=== PATIENT | male | born 1985 | race Caucasian/White ===

== ENCOUNTER 2016-11-14 03:49 | Emergency (ER) | payer OTHER ==
[2016-11-14 03:58] VITALS: BP 160/112; PULSE 109; RESP 16; TEMP 98.1; O2SAT 94
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
== END 2016-11-14 04:08 | disposition home or self-care (01) ==
DX: S69.92XA Unspecified injury of left wrist, hand and finger(s), initial encounter (principal); V48.5XXA Car driver injured in noncollision transport accident in traffic accident, initial encounter; Y92.410 Unspecified street and highway as the place of occurrence of the external cause; Y99.8 Other external cause status; Y93.89 Activity, other specified

== ENCOUNTER 2018-09-02 01:34 | Emergency (ER) | payer BC, OTHER ==
--- NOTE | 2018-09-02 01:37 | EDPHY ---
H & P Time Seen by Provider: 09/02/18 01:37 HPI/ROS: HPI CHIEF COMPLAINT: Right posterior molar dental pain. HISTORY OF PRESENT ILLNESS: 33-year-old male, otherwise healthy no significant medical history presents emergency room the right posterior molar dental pain. This been bothering him all week. He was recently new your consult dentist. He is prescribed clindamycin. He is due to see a dentist tomorrow. He has been taking his clindamycin every 8 hr as prescribed. Took ibuprofen for pain control however continues to have worsening pain. No fever. No trouble swallowing. Decided come the emergency room for evaluation. Past Medical History: Denies medical history Past Surgical History: Denies surgical history Social History: Denies drugs alcohol tobacco. Family History: Noncontributory ROS REVIEW OF SYSTEMS: 10 Systems were reviewed and negative with the exception of the elements mentioned in the history of present illness. Exam Constitutional triage nursing summary reviewed, vital signs reviewed, awake/ alert. Eyes normal conjunctivae and sclera, EOMI, PERRLA. HENT oropharynx unremarkable however right lower posterior molar is decayed. No gumline abscess. No Eugenio's. No underneath the tongue swelling. normal inspection, atraumatic, moist mucus membranes, no epistaxis, neck supple/ no meningismus, no raccoon eyes. Respiratory clear to auscultation bilaterally, normal breath sounds, no respiratory distress, no wheezing. Cardiovascular rate normal, regular rhythm, no murmur, no edema, distal pulses normal. Gastrointestinal soft, non-tender, no rebound, no guarding, normal bowel sounds, no distension, no pulsatile mass. Genitourinary no CVA tenderness. Musculoskeletal no midline vertebral tenderness, full range of motion, no calf swelling, no tenderness of extremities, no meningismus, good pulses, neurovascularly intact. Skin pink, warm, & dry, no rash, skin atraumatic. Neurologic awake, alert and oriented x 3, AAOx3, moves all 4 extremities equally, motor intact, sensory intact, CN II-XII intact, normal cerebellar, normal vision, normal speech. Psychiatric normal mood/affect. Heme/Lymph/Immune no lymphadenopathy. Differential Diagnosis: Includes but is not limited to in a particular order dental decay, acute dental trauma comma cavity, apical abscess, pulpitis, nerve injury. Medical Decision Making: Plan for this patient recommend he continues take clindamycin. Follow up with his dentist as he is due to do tomorrow. Caterina for pain control. Return precautions discussed with him. Source: Patient - Medical/Surgical History Hx Asthma: No Hx Chronic Respiratory Disease: No Hx Diabetes: No Hx Cardiac Disease: No Hx Renal Disease: No Hx Cirrhosis: No Hx Alcoholism: No Hx HIV/AIDS: No Hx Splenectomy or Spleen Trauma: No Other PMH: denies - Social History Smoking Status: Never smoked Constitutional: Initial Vital Signs Heart Rate 93 09/02/18 01:38 Respiratory Rate 16 09/02/18 01:38 Blood Pressure 157/100 H 09/02/18 01:38 O2 Sat (%) 99 09/02/18 01:38 O2 Delivery Mode Room Air Allergies/Adverse Reactions: Penicillins Allergy (Verified 09/02/18 01:38) Departure - Departure Disposition: Home, Routine, Self-Care Clinical Impression: Pain, dental Condition: Good Instructions: Toothache (ED) Referrals: NONE *PRIMARY CARE P,. [Primary Care Provider] - As per Instructions
[2018-09-02] MEDS ORDERED: HYDROCOD/APAP 5/325 PREPACK#6 BTL TAKEHOME ONE (01:41)
[2018-09-02 01:56] VITALS: BP 110/74
== END 2018-09-02 01:57 | disposition home or self-care (01) ==
DX: K08.89 Other specified disorders of teeth and supporting structures (principal)